=== PATIENT | male | born 1965 | race African-American/Black ===

== ENCOUNTER 2019-09-22 13:17 | Inpatient (IN) | payer OTHER ==
[2019-09-22 14:48] VITALS: BMI 17.8
--- NOTE | 2019-09-22 16:58 | HP ---
"CIWA Score Nausea/Vomitin-No Nausea/No Vomiting Muscle Tremors: 4-Moderate,w/Arms Extend Anxiety: 2 Agitation: 3 (shaking leg) Paroxysmal Sweats: 3 (Increased facial moisture) Orientation: 0-Oriented Tacttile Disturbances: 0-None Auditory Disturbances: 0-None Visual Disturbances: 0-None Headache: 0-None Present CIWA-Ar Total Score: 12 - Admission Criteria OASAS Guidelines: Admission for Medically Managed Detox: Requires at least one of the followin. CIWA greater than 12 2. Seizures within the past 24 hours 3. Delirium tremens within the past 24 hours 4. Hallucinations within the past 24 hours 5. Acute intervention needed for co occurring medical disorder 6. Acute intervention needed for co occurring psychiatric disorder 7. Severe withdrawal that cannot be handled at a lower level of care (continued vomiting, continued diarrhea, abnormal vital signs) requiring intravenous medication and/or fluids 8. Patient presents the following: CIWA greater than 12 (MANUELA: 0.022) Admission Criteria Met: Admission criteria met Admission ROS [facility] Chief Complaint: I'm here to get detox and figure out what else I need. Allergies/Adverse Reactions: Allergies Allergy/AdvReac Type Severity Reaction Status Date / Time No Known Allergies Allergy Verified 09/22/19 14:44 History of Present Illness: 54 yo first presentation to [facility] w/ alcohol withdrawal and intoxication seeking detox. [facility] tried detoxing self on own this weekend but unable to. MANUELA: 0.022 UTox: + THC Hx: 6 1/2 yrs sobriety. Alcohol use since age 8. Currently drinks 1/2 gallon plus/day of liquor. [facility] has been drinking this much x 1 year. States last drink about 12:30 pm today. Marijuana use since 8. Currently smokes 1 x/day. States uses to increase appetite. Nicotine use since age 8. Currently smokes 1 PPD. (30 yrs ago used cocaine) Denies hx seizures, blackouts, overdoses. PMHx: HTN (No meds prescribed) MHHx: Depression. Anxiety. PTSD. Denies thoughts of harming self or others. Last saw a MH Provider 1 yr. ago. Used to take meds - but not in over 1 year. SHx: Domiciled. Unemployed. Denies legal issues. Search Terms: Gino Rosario, 1965 Search Date: 09/22/2019 04:58:01 PM The Drug Utilization Report below displays all of the controlled substance prescriptions, if any, that your patient has filled in the last twelve months. The information displayed on this report is compiled from pharmacy submissions to the Department, and accurately reflects the information as submitted by the pharmacies. This report was requested by: Nisreen Cortes | Reference #: [id number] There are no results for the search terms that you entered. Exam Limitations: No Limitations, Intoxication - Ebola screening Have you traveled outside of the country in the last 21 days: No Have you had contact with anyone from an Ebola affected area: No Do you have a fever: No - Review of Systems Constitutional: Diaphoresis, Changes in sleep (Difficulty falling asleep.), Unintentional Wgt. Loss EENT: reports: Blurred Vision, Dental Problems (No teeth. Chews and swallows ok. ) Respiratory: reports: SOB with Exertion (w/ stair climbing) Cardiac: reports: No Symptoms Reported GI: reports: No Symptoms Reported : reports: No Symptoms Reported Musculoskeletal: reports: Back Pain (Intermittent (L) lower lumbar. No pain at this time.) Integumentary: reports: No Symptoms Reported Neuro: reports: Tremors Endocrine: reports: Increased Thirst Hematology: reports: No Symptoms Reported Psychiatric: reports: Judgement Intact, Orientated x3, Agitated, Anxious, Depressed (Denies thoughts of harming self or others.) Patient History - PPD History Previous Implant?: Yes Documented Results: Negative w/o proof Implanted On Prior R Admission?: Yes PPD to be Administered?: Yes - Smoking Cessation Smoking history: Current every day smoker Have you smoked in the past 12 months: Yes Aproximately how many cigarettes per day: 20 Hx Chewing Tobacco Use: No Initiated information on smoking cessation: Yes 'Breaking Loose' booklet given: 09/22/19 - Substance & Tx. History Hx Alcohol Use: Yes Hx Substance Use: Yes Substance Use Type: Alcohol, Cocaine, Marijuana Hx Substance Use Treatment: Yes (detox, out-patient) - Substances abused Alcohol Substance route: Oral Frequency: Daily Amount used: 1 gallon of vodka Age of first use: 8 Date of last use: 09/22/19 Admission Physical Exam BHS - Vital Signs Vital Signs: Vital Signs - 24 hr 09/22/19 09/22/19 14:45 16:42 Temperature 98.9 F 98.9 F Pulse Rate 86 86 Respiratory 17 17 Rate Blood Pressure 121/80 121/80 - Physical General Appearance: Yes: Mild Distress, Thin, Tremorous, Sweating (Increased facial moisture), Anxious HEENTM: Yes: EOMI, Hearing grossly Normal, Normocephalic, Normal Voice, JIGAR, Pharynx Normal (To teeth) Respiratory: Yes: Lungs Clear, Normal Breath Sounds, No Respiratory Distress Neck: Yes: No masses,lesions,Nodules, Supple Breast: Yes: Breast Exam Deferred Cardiology: Yes: Regular Rhythm, Regular Rate, S1, S2, Murmur Abdominal: Yes: Non Tender, Flat, Soft, Increased Bowel Sounds Genitourinary: Yes: Within Normal Limits Back: Yes: Normal Inspection Musculoskeletal: Yes: full range of Motion, Gait Steady Extremities: Yes: Normal Capillary Refill, Tremors (Gross tremors) 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 NML intact, Fully Oriented, Alert, Motor Strength 5/5 Integumentary: Yes: Normal Color, Warm, Moist (Increased facial moisture) Lymphatic: Yes: Within Normal Limits - Diagnostic (1) Alcohol dependence with withdrawal, uncomplicated Current Visit: Yes Status: Acute (2) Cannabis abuse, uncomplicated Current Visit: Yes Status: Chronic (3) Underweight Current Visit: Yes Status: Chronic (4) Cardiac murmur, unspecified Current Visit: Yes Status: Acute Cleared for Admission S - Detox or Rehab [facility] Level of Care: Medically Managed Detox Regimen/Protocol: Valium (ATIVAN) Claeared for Rehab Admission: No Breathalyzer - Breathalyzer Breathalyzer: 0.022 Urine Drug Screen - Test Device Lot number: [id number] Expiration date: 05/14/21 - Control Is test valid?: Yes - Results Drug screen NEGATIVE: No Urine drug screen results: THC-Marijuana Inpatient Rehab Admission - Rehab Decision to Admit Inpatient rehab admission?: No"
[2019-09-22] MEDS ORDERED: MENTHOL/PHENOL 1 EACH UD MM PRN (17:19)
[2019-09-22] MEDS ORDERED: NICOTINE POLACRILEX 2 MG GUM BUC PRN (17:19)
[2019-09-22] MEDS ORDERED: LORazepam 1 MG TABLET PO PRN (17:19)
[2019-09-22] MEDS ORDERED: MAGNESIUM HYDROX 2400MG/30ML ORAL SUSPENSION 30 ML CUP PO PRN (17:19)
[2019-09-22] MEDS ORDERED: MAG HYDROX/AL HYDROX/SIMETH 30 ML UNIT-DOSE CUP PO PRN (17:19)
[2019-09-22] MEDS ORDERED: BISMUTH SUBSALICYLATE 524 MG/30 ML UD PO PRN (17:19)
[2019-09-22] MEDS ORDERED: ACETAMINOPHEN 325 MG TABLET (FP) PO PRN ×2 (17:19)
[2019-09-22] MEDS ORDERED: MAGNESIUM CITRATE 300 ML BOTTLE PO PRN (17:19)
[2019-09-22] MEDS ORDERED: MELATONIN 5 MG TABLETS PO PRN (17:19)
[2019-09-22] MEDS ORDERED: IBUPROFEN 400 MG TABLET (FP) PO PRN (17:19)
[2019-09-22] MEDS ORDERED: LORazepam 2 MG TABLET PO ONE (19:00)
[2019-09-22] MEDS: THIAMINE HCL 100 MG TABLET (FP) PO SCH (22:07)
[2019-09-22] MEDS: LORazepam 2 MG TABLET PO SCH (22:07)
[2019-09-23] MEDS: LORazepam 2 MG TABLET PO SCH ×4 (05:27→22:11)
--- NOTE | 2019-09-23 09:08 | EKG ---
Test Reason : Blood Pressure : / mmHG Vent. Rate : 084 BPM Atrial Rate : 084 BPM P-R Int : 124 ms QRS Dur : 088 ms QT Int : 396 ms P-R-T Axes : 001 001 045 degrees QTc Int : 467 ms NORMAL SINUS RHYTHM POSSIBLE LEFT ATRIAL ENLARGEMENT LEFT VENTRICULAR HYPERTROPHY ABNORMAL ECG NO PREVIOUS ECGS AVAILABLE Confirmed by Aleksander Hess MD ([id number]) on 09/23/2019 9:08:11 AM Referred By: Confirmed By:Aleksander Hess MD
[2019-09-23] MEDS ORDERED: PRENATAL VITAMINS W/ FOLIC ACID TABLET (FP) PO SCH (10:00)
[2019-09-23] MEDS ORDERED: NICOTINE 21 MG/24 HOURS TOPICAL PATCH TD SCH (10:00)
--- NOTE | 2019-09-23 10:07 | PN ---
S CIWA - CIWA Score Nausea/Vomitin-Mild Nausea/No Vomiting Muscle Tremors: 2 Anxiety: 4-Mod. Anxious/Guarded Agitation: 3 Paroxysmal Sweats: 2 Orientation: 0-Oriented Tacttile Disturbances: 0-None Auditory Disturbances: 0-None Visual Disturbances: 0-None Headache: 1-Very Mild CIWA-Ar Total Score: 13 S Progress Note (SOAP) Subjective: 54 years old male admitted on 09/22/19 for alcohol withdrawal sx management treated with ativan detox regimen ate breakfast resting on bed feeling tired prefers to stay in bed today Objective: 09/23/19 10:07 Vital Signs Temperature 98.9 F 09/23/19 09:34 Pulse Rate 92 H 09/23/19 09:34 Respiratory Rate 18 09/23/19 09:34 Blood Pressure 123/89 09/23/19 09:34 O2 Sat by Pulse Oximetry (%) 09/23/19 10:07 lab pending Assessment: 09/23/19 10:07 alcohol withdrawal Plan: ativan regimen
[2019-09-23 11:05] LABS: HEMATOCRIT 40.3 % (35.4-49); HEMOGLOBIN 12.6 GM/dL (11.7-16.9); MCH 27.9 pg (25.7-33.7); MCHC 31.3 g/dl (32.0-35.9); MEAN CELL VOLUME 89.4 fl (80-96); MEAN PLT VOLUME 8.3 fl (7.5-11.1); PLATELET COUNT 277 K/MM3 (134-434); RBC 4.51 M/mm3 (4.00-5.60); RDW 15.9 % (11.9-15.9); WHITE BLOOD COUNT 6.2 K/mm3 (4.0-10.0)
[2019-09-23 11:16] LABS: ALBUMIN 3.5 g/dl (3.4-5.0); BILIRUBIN,TOTAL 0.5 mg/dL (0.2-1); BLOOD UREA NITROGEN 8.4 mg/dL (7-18); CALCIUM 8.6 mg/dL (8.5-10.1); CREATININE 0.6 mg/dL (0.55-1.3); POTASSIUM 3.5 mmol/L (3.5-5.1); TOT PROT 6.6 g/dl (6.4-8.2)
[2019-09-23] MEDS: THIAMINE HCL 100 MG TABLET (FP) PO SCH (22:11)
[2019-09-24] MEDS ORDERED: LORazepam 1 MG TABLET PO SCH (05:00)
[2019-09-24 09:26] VITALS: BP 130/93; PULSE 93; TEMP 98.2
--- NOTE | 2019-09-24 09:53 | DS ---
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 is alert oriented x 3 no acute distress ambulating steady gait speech clearly coherently [facility] - Physical Exam Results Vital Signs: Vital Signs Temperature 98.2 F 09/24/19 09:24 Pulse Rate 93 H 09/24/19 09:24 Respiratory Rate 18 09/24/19 09:24 Blood Pressure 130/93 09/24/19 09:24 O2 Sat by Pulse Oximetry (%) Pertinent Admission Physical Exam Findings: alcohol withdrawal sx Laboratory Last Values WBC 6.2 K/mm3 (4.0-10.0) 09/23/19 07:50 RBC 4.51 M/mm3 (4.00-5.60) 09/23/19 07:50 Hgb 12.6 GM/dL (11.7-16.9) 09/23/19 07:50 Hct 40.3 % (35.4-49) 09/23/19 07:50 MCV 89.4 fl (80-96) 09/23/19 07:50 MCH 27.9 pg (25.7-33.7) 09/23/19 07:50 MCHC 31.3 g/dl (32.0-35.9) L 09/23/19 07:50 RDW 15.9 % (11.9-15.9) 09/23/19 07:50 Plt Count 277 K/MM3 (134-434) 09/23/19 07:50 MPV 8.3 fl (7.5-11.1) 09/23/19 07:50 Sodium 143 mmol/L (136-145) 09/23/19 07:50 Potassium 3.5 mmol/L (3.5-5.1) 09/23/19 07:50 Chloride 106 mmol/L (98-107) 09/23/19 07:50 Carbon Dioxide 30 mmol/L (21-32) 09/23/19 07:50 Anion Gap 8 MMOL/L (8-16) 09/23/19 07:50 BUN 8.4 mg/dL (7-18) 09/23/19 07:50 Creatinine 0.6 mg/dL (0.55-1.3) 09/23/19 07:50 Est GFR (CKD-EPI)AfAm 130.27 09/23/19 07:50 Est GFR (CKD-EPI)NonAf 112.40 09/23/19 07:50 Random Glucose 81 mg/dL (74-106) 09/23/19 07:50 Calcium 8.6 mg/dL (8.5-10.1) 09/23/19 07:50 Total Bilirubin 0.5 mg/dL (0.2-1) 09/23/19 07:50 AST 39 U/L (15-37) H 09/23/19 07:50 ALT 30 U/L (13-61) 09/23/19 07:50 Alkaline Phosphatase 71 U/L (45-117) 09/23/19 07:50 Total Protein 6.6 g/dl (6.4-8.2) 09/23/19 07:50 Albumin 3.5 g/dl (3.4-5.0) 09/23/19 07:50 lab noted Vital Signs Temperature 98.2 F 09/24/19 09:24 Pulse Rate 93 H 09/24/19 09:24 Respiratory Rate 18 09/24/19 09:24 Blood Pressure 130/93 09/24/19 09:24 O2 Sat by Pulse Oximetry (%) encourage bp monitoring by the primary care provider [facility] - Treatment Hospital Course: Detox Protocol Followed, Discharged Condition Good Patient has Accepted a Rehab Referral to: shayne smith - Medication Discharge Medications: Ambulatory Orders Multivitamin [Multiple Vitamins] 1 each PO DAILY 09/22/19 - Diagnosis (1) Alcohol dependence with withdrawal, uncomplicated Status: Acute (2) Underweight Status: Chronic - AMA Did Patient Leave Against Medical Advice: Yes
[2019-09-25] MEDS ORDERED: LORazepam 0.5 MG TABLET PO PRN
[2019-09-25] MEDS ORDERED: LORazepam 0.5 MG TABLET PO SCH (05:00)
[2019-09-26] MEDS ORDERED: LORazepam 0.5 MG TABLET PO ONE (05:00)
== END 2019-09-24 09:20 | disposition left against medical advice (07) | DRG 770 ==
LOC: YASAS 13:17 → Y3N 17:48
PROVIDERS: ADMIT Allergy & Immunology; ATTEND Allergy & Immunology
PROC: HZ2ZZZZ Detoxification Services for Substance Abuse Treatment (ICD-10-PCS; principal; 2019-09-22)
DX: F10.230 Alcohol dependence with withdrawal, uncomplicated (principal); F12.20 Cannabis dependence, uncomplicated; F17.210 Nicotine dependence, cigarettes, uncomplicated; F41.8 Other specified anxiety disorders; F32.9 Major depressive disorder, single episode, unspecified; F43.10 Post-traumatic stress disorder, unspecified; I10 Essential (primary) hypertension; R01.1 Cardiac murmur, unspecified; R63.6 Underweight; Z68.1 Body mass index [BMI] 19.9 or less, adult
CPT/HCPCS: 36415; 80053; 85027; 86593; 93005; 93010